=== PATIENT | male | born 1965 | race Caucasian/White ===

== ENCOUNTER 2017-01-16 10:18 | Emergency (ER) | payer SELFPAY ==
[~2017-01-16] VITALS: Ht 175.3 cm; Wt 100.0 kg
[2017-01-16 10:19] VITALS: BP 160/97; PULSE 90; RESP 20; TEMP 98.5; O2SAT 100
[2017-01-16] MEDS ORDERED: METF500 PO (10:54)
[2017-01-16] MEDS ORDERED: PRAV40TA2 PO (10:54)
[2017-01-16] MEDS ORDERED: PERC10TA27 PO (10:54)
[2017-01-16] MEDS ORDERED: LISI-515 PO (10:54)
[2017-01-16] MEDS ORDERED: METF500T PO (10:54)
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
== END 2017-01-16 12:22 | disposition left against medical advice (07) ==
LOC: NEPK 10:18
DX: S69.91XA Unspecified injury of right wrist, hand and finger(s), initial encounter (principal); X58.XXXA Exposure to other specified factors, initial encounter
CPT/HCPCS: 73110; 99283; L3908